=== PATIENT | female | born 1955 | race Hispanic/Latino ===

== ENCOUNTER 2018-11-05 16:46 | Inpatient (IN) | payer MEDICAID ==
[2018-11-05 16:46] VITALS: BMI 19.7
--- NOTE | 2018-11-05 17:17 | C.PDOC ---
History Of Present Illness 63 year old female with a history of stent x1 presents to the ED for evaluation of a left leg blood clot associated with left leg swelling for 5 days. The patient reports she was recently diagnosed with the blood clot by PMD Dr. Jorge contreras. She denies fever, chills, chest pain, shortness of breath, recent travel, and any other associated symptoms. Time Seen by Provider: 11/05/18 17:08 Chief Complaint (Nursing): Lower Extremity Problem/Injury History Per: Patient History/Exam Limitations: no limitations Onset/Duration Of Symptoms: Days Current Symptoms Are (Timing): Still Present Recent travel outside of the [place]: No Past Medical History Reviewed: Historical Data, Nursing Documentation, Vital Signs Vital Signs: Last Vital Signs Temp 97.4 F L 11/05/18 16:50 Pulse 76 11/05/18 16:50 Resp 18 11/05/18 16:50 BP 127/81 11/05/18 16:50 Pulse Ox 99 11/05/18 16:50 - Medical History PMH: Anxiety, Arthritis (GENERALIZED), HTN (NO LONGER ON MEDS), Hypercholesterolemia, Hypothyroidism, Seizures Denies: Chronic Kidney Disease Surgical History: Coronary Stent (5 YRS AGO - 1 STENT) - [employer] Procedures COLONOSCOPY (11/10/14) Family History: States: Unknown Family Hx - Social History Hx Alcohol Use: No Hx Substance Use: No - Immunization History Hx Tetanus Toxoid Vaccination: No Hx Influenza Vaccination: Yes Hx Pneumococcal Vaccination: Yes Review Of Systems Except As Marked, All Systems Reviewed And Found Negative. (all other systems negative except as noted in the HPI.) Musculoskeletal: Positive for: Leg Pain (right knee pain. ), Other (right knee swelling. ) Physical Exam - Physical Exam Additional Physical Exam Comments: Gen: VS reviewed, alert, well developed, well nourished, nontoxic, mild distress Eye: EOMI, PERRL Neck: no JVD, supple, no adenopathy CV: regular rate, regular rhythm, no rubs, no murmur, S1, S2 Pulm: no distress, clear to auscultation, no wheeze, no rhonchi, breath sounds equal, no rales Abd: soft, nontender, no guarding, no rebound, no rigidity Extremities: no edema, good dp pulses, questionable tenderness to the posterior left knee, (-) swelling to left knee. Skin: good color, no rash, no cyanosis Psych: responds appropriately to questions, normal affect Neuro: oriented x3, CN2-12 intact grossly, motor intact, sensation intact ED Course And Treatment - Laboratory Results Result Diagrams: 11/05/18 17:28 11/05/18 17:28 O2 Sat by Pulse Oximetry: 99 (RA) Pulse Ox Interpretation: Normal Medical Decision Making Medical Decision Making: Plan: -EKG Blood sent. 1829: nsr at 64 bpm, nml qrs, nml axis, no acute sttw abn 1924: call palced to dr. mercado and am awaiting a call back. has-bled score = 1 and i feel it is safe to start empiric anticoagulation. patient was sent to the hospital to be admitted for known outpt diagnosed left popliteal DVT. patient does not exhibit cardiopulmonary symptoms. patient stable for nonncritical bed admission. 2004: admit accepted by dr. mercado Disposition - Disposition Disposition: HOSPITALIZED Disposition Time: 20:04 Condition: STABLE Forms: [facility] (Yakut) - Clinical Impression Clinical Impression: DVT (deep venous thrombosis) - Scribe Statement The provider has reviewed the documentation as recorded by the Scribe (Joycelyn Verma) Provider Attestation: All medical record entries made by the Scribe were at my direction and personally dictated by me. I have reviewed the chart and agree that the record accurately reflects my personal performance of the history, physical exam, medical decision making, and the department course for this patient. I have also personally directed, reviewed, and agree with the discharge instructions and disposition.
[2018-11-05 17:36] LABS: BASO % 0.6 % (0.0-2.0); EOS % 0.9 % (0.0-4.0); HEMOGLOBIN 14.5 g/dL (11.0-16.0); LYMPH # 1.2 K/uL (1.0-4.3); MEAN CELL VOLUME 91.6 fL (81.0-99.0); MEAN CORPUSCULAR HEMOGLOBIN 30.3 pg (27.0-31.0); MEAN PLATELET VOLUME 7.5 fL (7.2-11.7); MONO # 0.3 K/uL (0.0-0.8); MONO % 8.6 % (0.0-10.0); NEUT # 2.2 K/uL (1.8-7.0); NEUT % 58.9 % (50.0-75.0); RBC 4.78 Mil/uL (3.80-5.20); RED CELL DISTRIBUTION WIDTH 13.8 % (11.5-14.5); WHITE BLOOD COUNT 3.7 K/uL (4.8-10.8)
[2018-11-05 17:44] LABS: INR 1.1; PROTHROMBIN TIME 11.9 SECONDS (9.7-12.2)
[2018-11-05 17:52] LABS: BLOOD UREA NITROGEN 20 mg/dL (7-17); CALCIUM 9.5 mg/dl (8.6-10.4); GFR NON-AFRICAN AMERICAN > 60
[2018-11-05] MEDS ORDERED: Heparin25000 units/250ml 1/2NS 25,000 UNITS/250 ML BAG IV PRN (19:17)
[2018-11-05 22:53] VITALS: RESP 20
[2018-11-06] MEDS: Heparin25000 units/250ml 1/2NS 25,000 UNITS/250 ML BAG IV PRN (07:12)
[2018-11-06] MEDS: Calcium-Vit D 500 mg-200 Units Tab UD PO SCH (09:46)
[2018-11-06] MEDS: Levothyroxine 50 MCG TAB PO SCH (09:46)
--- NOTE | 2018-11-06 23:04 | CP.PCM.CON ---
History of Present Illness - History of Present Illness History of Present Illness: 63 year old female with a history of CAD s/p stent, hypothyroid, admitted with left leg DVT. The patient notes to swelling of her left leg for 3-4 days. She saw her PMD who ordered LE venous dopplers which revealed left leg DVT and told to report to the ER. She is currently on a heparin drip and reports to feeling better. She denies trauma or immobility. She has no shortness of breath and chest pain. Past medical history: CAD s/p stent, hypothyroid Past surgical history: Hernia repair Family history: Denies hematologic and oncologic problems Social history: Denies tobacco, alcohol, and illicit drug use. Allergies: NKA Review of systems: All remaining review of systems including HEENT, cardiovascular, respiratory, gastrointestinal, genitourinary, musculoskeletal, dermatologic, neurologic, and psychiatric are negative unless mentioned in the HPI. Past Patient History - Past Medical History & Family History Past Medical History?: Yes - Past Social History Smoking Status: Never Smoked - CARDIAC Hx Cardiac Disorders: Yes Hx Hypercholesterolemia: Yes Hx Hypertension: Yes (NO LONGER ON MEDS) - PULMONARY Hx Respiratory Disorders: No - NEUROLOGICAL Hx Neurological Disorder: No Hx Seizures: Yes - HEENT Hx HEENT Problems: No - RENAL Hx Chronic Kidney Disease: No - ENDOCRINE/METABOLIC Hx Hypothyroidism: Yes - HEMATOLOGICAL/ONCOLOGICAL Hx Blood Disorders: No - INTEGUMENTARY Hx Dermatological Problems: No - MUSCULOSKELETAL/RHEUMATOLOGICAL Hx Arthritis: Yes (GENERALIZED) Hx Falls: No - GASTROINTESTINAL Hx Gastrointestinal Disorders: No (ANAL FISSURE REPAIR) - GENITOURINARY/GYNECOLOGICAL Hx Genitourinary Disorders: Yes (KIDNEY STONES SURGICALLY REMOVED) - PSYCHIATRIC Hx Anxiety: Yes Hx Substance Use: No - SURGICAL HISTORY Hx Surgeries: Yes Hx Coronary Stent: Yes (5 YRS AGO - 1 STENT) - ANESTHESIA Hx Anesthesia: Yes Hx Anesthesia Reactions: No Hx Malignant Hyperthermia: No Has any member of the family had a problem w/ anesthesia?: No Meds Allergies/Adverse Reactions: Allergies Allergy/AdvReac Type Severity Reaction Status Date / Time No Known Allergies Allergy Verified 11/08/14 11:37 - Medications Medications: Current Medications Calcium/Vitamin D (Oyster Shell Calcium/Vitamin D 500 Mg-200 Iu) 1 tab PO DAILY [facility] Last Admin: 11/06/18 09:46 Dose: 1 tab Gabapentin (Neurontin) 300 mg PO TID [facility] Last Admin: 11/06/18 17:13 Dose: 300 mg Heparin Sodium/Sodium Chloride (Heparin 20862 Units/250ml 1/2 Normal Saline) 25,000 units in 250 mls @ 8.029 mls/hr IV .Q24H PRN; Protocol PRN Reason: ADJUST RATE PER PROTOCOL Last Admin: 11/06/18 07:12 Dose: 15 units/kg/hr, 8.029 mls/hr Levothyroxine Sodium (Synthroid) 50 mcg PO DAILY [facility] Last Admin: 11/06/18 09:46 Dose: 50 mcg Lorazepam (Ativan) 0.5 mg PO HS [facility] Last Admin: 11/06/18 21:28 Dose: 0.5 mg Rosuvastatin Calcium (Crestor) 10 mg PO [facility] Last Admin: 11/06/18 21:27 Dose: 10 mg Topiramate (Topamax) 25 mg PO BID [facility] Last Admin: 11/06/18 17:13 Dose: 25 mg Zolpidem Tartrate (Ambien) 5 mg PO [facility] Last Admin: 11/06/18 21:27 Dose: 5 mg Physical Exam - Head Exam Head Exam: ATRAUMATIC - Eye Exam Eye Exam: Normal appearance - ENT Exam ENT Exam: Mucous Membranes Dry - Respiratory Exam Respiratory Exam: NORMAL BREATHING PATTERN - Cardiovascular Exam Cardiovascular Exam: +S1, +S2 - GI/Abdominal Exam GI & Abdominal Exam: Normal Bowel Sounds - Extremities Exam Extremities exam: Positive for: pedal edema - Neurological Exam Neurological exam: Oriented x3 - Psychiatric Exam Psychiatric exam: Normal Affect, Normal Mood - Skin Skin Exam: Warm Results - Vital Signs Recent Vital Signs: Last Vital Signs Temp 98.0 F 11/06/18 15:00 Pulse 65 11/06/18 15:00 Resp 20 11/06/18 15:00 BP 128/79 11/06/18 15:00 Pulse Ox 98 11/06/18 15:00 - Labs Result Diagrams: 11/05/18 17:28 11/05/18 17:28 Labs: Laboratory Results - last 24 hr 11/06/18 11/06/18 11/06/18 04:41 14:10 20:23 APTT > 400 H* D 58 H D 64 H D Assessment & Plan (1) DVT (deep venous thrombosis) Assessment and Plan: left leg DVT unprovoked therapeutic anticoagulation; on heparin drip Status: Acute (2) Coagulopathy Assessment and Plan: secondary to anticoagulation Thank you for this interesting consult. Status: Acute
--- NOTE | 2018-11-06 23:49 | CARD ---
APPROVED REPORT Date of service: 11/05/2018 EKG Measurement Heart [id number] <Conclusion> Normal sinus rhythm Normal ECG
[2018-11-07] MEDS: Heparin25000 units/250ml 1/2NS 25,000 UNITS/250 ML BAG IV PRN ×2 (07:48→09:44)
[2018-11-07] MEDS: Levothyroxine 50 MCG TAB PO SCH (09:48)
[2018-11-07] MEDS: Calcium-Vit D 500 mg-200 Units Tab UD PO SCH (10:03)
[2018-11-07 10:15] LABS: INR 1.1; PROTHROMBIN TIME 12.1 SECONDS (9.7-12.2)
--- NOTE | 2018-11-07 21:11 | PN ---
DATE: 11/07/2018 SUBJECTIVE: The patient is very alert and awake and still complaining of some pain to the left hip and knee. Denies shortness of breath. No chest pain. No palpitations. PHYSICAL EXAMINATION: VITAL SIGNS: Blood pressure 113/74, pulse 60, respirations 20, temperature 97.4. NECK: Supple. LUNGS: Clear. HEART: Regular rate and rhythm. ABDOMEN: Soft. Nontender. No palpable mass. EXTREMITIES: There is mild tenderness in the left knee, internal aspect of the femoral canal lower portion. NEUROLOGIC: The patient is alert and awake. No motor or sensory deficit. LABORATORY DATA: The patient had blood test done. The PT is 12.1, INR 1.1, and PTT is 118. PLAN: The patient is on Coumadin and has a consult with Dr. Bob. We are going to continue the heparin and later on, we will consider Xarelto. Issa Gutierrez MD
--- NOTE | 2018-11-07 21:28 | CP.PCM.PN ---
Subjective - Date & Time of Evaluation Date of Evaluation: 11/07/18 Time of Evaluation: 19:00 - Subjective Subjective: Has left leg pain. Objective - Vital Signs/Intake and Output Vital Signs (last 24 hours): Temp Pulse Resp BP Pulse Ox 98.2 F 59 L 20 128/73 95 11/07/18 16:00 11/07/18 16:00 11/07/18 16:00 11/07/18 16:00 11/07/18 16:00 Intake and Output: 11/07/18 11/08/18 18:59 06:59 Intake Total 620 Balance 620 - Medications Medications: Current Medications Calcium/Vitamin D (Oyster Shell Calcium/Vitamin D 500 Mg-200 Iu) 1 tab PO DAILY [facility] Last Admin: 11/07/18 10:03 Dose: 1 tab Gabapentin (Neurontin) 300 mg PO TID [facility] Last Admin: 11/07/18 17:45 Dose: 300 mg Heparin Sodium/Sodium Chloride (Heparin 69568 Units/250ml 1/2 Normal Saline) 25,000 units in 250 mls @ 6.423 mls/hr IV .Q24H PRN; Protocol PRN Reason: ADJUST RATE PER PROTOCOL Last Admin: 11/07/18 09:44 Dose: 12 units/kg/hr, 6.423 mls/hr Levothyroxine Sodium (Synthroid) 50 mcg PO DAILY [facility] Last Admin: 11/07/18 09:48 Dose: 50 mcg Lorazepam (Ativan) 0.5 mg PO HS [facility] Last Admin: 11/06/18 21:28 Dose: 0.5 mg Rosuvastatin Calcium (Crestor) 10 mg PO HS [facility] Last Admin: 11/06/18 21:27 Dose: 10 mg Topiramate (Topamax) 25 mg PO BID [facility] Last Admin: 11/07/18 09:48 Dose: 25 mg Zolpidem Tartrate (Ambien) 5 mg PO HS [facility] Last Admin: 11/06/18 21:27 Dose: 5 mg - Labs Labs: 11/05/18 17:28 11/05/18 17:28 PT 12.1 SECONDS (9.7-12.2) 11/07/18 07:52 INR 1.1 11/07/18 07:52 APTT 81 SECONDS (21-34) H D 11/07/18 16:32 - Head Exam Head Exam: ATRAUMATIC - Eye Exam Eye Exam: Normal appearance - ENT Exam ENT Exam: Mucous Membranes Dry - Respiratory Exam Respiratory Exam: NORMAL BREATHING PATTERN - Cardiovascular Exam Cardiovascular Exam: +S1, +S2 - GI/Abdominal Exam GI & Abdominal Exam: Normal Bowel Sounds Assessment and Plan (1) DVT (deep venous thrombosis) Assessment & Plan: left leg DVT unprovoked therapeutic anticoagulation; on heparin drip Status: Acute (2) Coagulopathy Assessment & Plan: secondary to anticoagulation Status: Acute
[2018-11-08 08:28] LABS: BASO % 0.6 % (0.0-2.0); EOS # 0.1 K/uL (0.0-0.7); EOS % 2.4 % (0.0-4.0); HEMOGLOBIN 14.2 g/dL (11.0-16.0); LYMPH % 33.3 % (20.0-40.0); MEAN CELL VOLUME 92.8 fL (81.0-99.0); MEAN CORPUSCULAR HEMOGLOBIN 31.1 pg (27.0-31.0); MEAN CORPUSCULAR HGB CONC 33.5 g/dL (33.0-37.0); MONO # 0.4 K/uL (0.0-0.8); MONO % 12.2 % (0.0-10.0); NEUT # 1.5 K/uL (1.8-7.0); NEUT % 51.5 % (50.0-75.0); NRBC % 0.2 % (0.0-2.0); RBC 4.57 Mil/uL (3.80-5.20)
[2018-11-08 08:51] LABS: ALBUMIN 4.5 g/dL (3.5-5.0); BLOOD UREA NITROGEN 16 mg/dL (7-17); CALCIUM 9.3 mg/dl (8.6-10.4); GFR NON-AFRICAN AMERICAN > 60
[2018-11-08 08:52] LABS: ALB/GLOB RATIO 1.4 (1.0-2.1); ALT/SGPT 14 U/L (9-52); AST/SGOT 40 U/L (14-36)
--- NOTE | 2018-11-08 10:13 | HP ---
HISTORY OF PRESENT ILLNESS: This patient is a 63-year-old female with history of depression, seizure disorder, and hypothyroidism. The patient came to my office, was complaining of some swelling of the left thigh which was then turned to the left knee. The patient was evaluated by me at the office and a stat venous Doppler was ordered. The venous Doppler has revealed that the patient has DVT of the popliteal vein. The patient was called and requested to go immediately to the emergency room for admission which the patient has done at the present time. PAST MEDICAL HISTORY: As I mentioned, history of depression, history of hypothyroidism, seizure disorder, and vitamin D deficiency. MEDICATIONS AT HOME: The patient was on calcium and vitamin D supplement, topiramate, Synthroid, lorazepam, gabapentin, atorvastatin, and aspirin. ALLERGIES: THE PATIENT HAS NO KNOWN ALLERGY. SOCIAL HISTORY: No history of smoking or alcohol abuse at this time. No history of illicit drug. FAMILY HISTORY: No inherited disease. REVIEW OF SYSTEMS: RESPIRATORY SYSTEM: The patient denies any shortness of breath. CARDIOVASCULAR SYSTEM: No chest pain or palpitation. GASTROINTESTINAL: No nausea or vomiting except the patient has some anorexia, apparently voluntary. GENITOURINARY: No dysuria. . NEUROLOGIC: The patient is complaining of some knee pain. PHYSICAL EXAMINATION: GENERAL: The patient is alert, awake, and oriented x3 and pleasant. VITAL SIGNS: Blood pressure on admission was 119/64, pulse 68, respirations 20, temperature 98.7. HEENT: Normocephalic and atraumatic. NECK: Supple. No JVD. LUNGS: Clear. HEART: Regular rate and rhythm. ABDOMEN: Soft and nontender. No palpable mass. Positive bowel sounds. EXTREMITIES: There is slight swelling of the left thigh and tenderness to the anterior aspect of the left knee and area of the femoral canal. LABORATORY DATA: The patient had some tests done, WBC was 3.7, hemoglobin 14.5, hematocrit 43.8, and platelet was 218. Chemistry showed a sodium of 130, potassium 3.6, chloride 109, bicarb is 19, BUN is 20, creatinine 0.7, and GFR is more than 60. Coagulation: PT 11.9, INR 1.1, and PTT 33. IMPRESSION: The patient will be admitted with the diagnosis of deep venous thrombosis of the left popliteal, depression, hypothyroidism, and vitamin D deficiency. The patient will have a consult with Dr. Bob, the compensation advisor. The case was reviewed and discussed with Jasmin Rivas, the nurse practitioner, today. Issa Gutierrez MD
[2018-11-08] MEDS: Levothyroxine 50 MCG TAB PO SCH (10:23)
[2018-11-08] MEDS: Calcium-Vit D 500 mg-200 Units Tab UD PO SCH (10:23)
[2018-11-08 19:54] LABS: INR 1.1; PROTHROMBIN TIME 12.5 SECONDS (9.7-12.2)
--- NOTE | 2018-11-08 21:48 | PN ---
DATE: 11/08/2018 SUBJECTIVE: Today, the patient is alert and awake, but still complaining of some pain to the left side of the knee and left thigh. No shortness of breath. PHYSICAL EXAMINATION: VITAL SIGNS: Blood pressure 120/73, pulse 69, respirations 20, and temperature 98.2. NECK: Supple. LUNGS: Clear. HEART: Regular rate and rhythm. ABDOMEN: Soft. EXTREMITIES: There is some tenderness in the internal aspect of the left thigh portion and left popliteal area, and there is edema of the thigh. LABORATORY DATA: WBC 3, hemoglobin 14, hematocrit 42.4, and platelet is 167. Chemistry showed sodium 140, potassium 4.7, chloride 108, bicarb 21, BUN 16, and creatinine 0.8. AST 40, ALT 40, and alkaline phosphatase 77. The PT is 13 and 66. ASSESSMENT AND PLAN: Plan is that we are going to put the patient on Coumadin now at a dose of 5 mg, PT and INR . Issa Gutierrez MD
[2018-11-09] MEDS: Heparin25000 units/250ml 1/2NS 25,000 UNITS/250 ML BAG IV PRN (03:50)
[2018-11-09] MEDS: Levothyroxine 50 MCG TAB PO SCH (05:34)
[2018-11-09 07:54] LABS: BASO % 0.8 % (0.0-2.0); EOS # 0.1 K/uL (0.0-0.7); EOS % 2.5 % (0.0-4.0); HEMOGLOBIN 14.8 g/dL (11.0-16.0); LYMPH % 34.7 % (20.0-40.0); MEAN CELL VOLUME 92.9 fL (81.0-99.0); MEAN CORPUSCULAR HGB CONC 33.4 g/dL (33.0-37.0); MEAN PLATELET VOLUME 7.6 fL (7.2-11.7); MONO # 0.3 K/uL (0.0-0.8); MONO % 11.9 % (0.0-10.0); NEUT # 1.4 K/uL (1.8-7.0); NEUT % 50.1 % (50.0-75.0); NRBC % 0.1 % (0.0-2.0); RBC 4.75 Mil/uL (3.80-5.20); RED CELL DISTRIBUTION WIDTH 13.7 % (11.5-14.5); WHITE BLOOD COUNT 2.9 K/uL (4.8-10.8)
[2018-11-09 08:00] LABS: INR 1.1; PROTHROMBIN TIME 12.2 SECONDS (9.7-12.2)
[2018-11-09 08:19] LABS: ALB/GLOB RATIO 1.3 (1.0-2.1); ALBUMIN 4.3 g/dL (3.5-5.0); ALT/SGPT 23 U/L (9-52); AST/SGOT 29 U/L (14-36); BLOOD UREA NITROGEN 14 mg/dL (7-17); CALCIUM 8.8 mg/dl (8.6-10.4); GFR NON-AFRICAN AMERICAN > 60
[2018-11-09] MEDS: Calcium-Vit D 500 mg-200 Units Tab UD PO SCH (10:56)
--- NOTE | 2018-11-10 01:49 | PN ---
DATE: 11/09/2018 SUBJECTIVE: Today, the patient is alert and awake, just complaining of some pain to the left leg, to the left lower extremity. Denies any chest pain or palpitation. No dizziness. PHYSICAL EXAMINATION: VITAL SIGNS: The patient has blood pressure of 103/61, pulse 64, respirations 20, temperature 98.1. NECK: Supple. No JVD. LUNGS: Clear. HEART: Regular rate and rhythm. ABDOMEN: Soft, nontender. No palpable mass. EXTREMITIES: There is a mild tenderness to the left knee and internal aspect of the left thigh. LABORATORY DATA: The patient's blood work has shown WBC 2.9, hemoglobin 14.8, hematocrit 44.2, and platelet is 184. Chemistry showed sodium 137, potassium 4.4, chloride 103, bicarb 22, BUN 14, creatinine 0.9, and glucose 85. Calcium 8.8, phosphorus 4.2. Also the patient has PTT 82 with PT 12.2, INR is 1.1. PLAN: The plan is that we are going to continue IV heparin, and also Coumadin will be ordered at 5 mg again today. The case was reviewed and discussed with Jasmin Rivas, the nurse practitioner. Issa Gutierrez MD
[2018-11-10] MEDS: Levothyroxine 50 MCG TAB PO SCH (06:41)
[2018-11-10 07:38] LABS: HEMOGLOBIN 13.8 g/dL (11.0-16.0); MEAN CELL VOLUME 92.4 fL (81.0-99.0); MEAN CORPUSCULAR HEMOGLOBIN 30.5 pg (27.0-31.0); MEAN PLATELET VOLUME 7.8 fL (7.2-11.7); RBC 4.53 Mil/uL (3.80-5.20); RED CELL DISTRIBUTION WIDTH 13.7 % (11.5-14.5); WHITE BLOOD COUNT 3.2 K/uL (4.8-10.8)
[2018-11-10 07:48] LABS: INR 1.2; PROTHROMBIN TIME 13.2 SECONDS (9.7-12.2)
[2018-11-10] MEDS: Calcium-Vit D 500 mg-200 Units Tab UD PO SCH (11:24)
[2018-11-10] MEDS: Heparin25000 units/250ml 1/2NS 25,000 UNITS/250 ML BAG IV PRN (22:42)
--- NOTE | 2018-11-11 01:22 | PN ---
DATE: 11/10/2018 SUBJECTIVE: Today, the patient is alert and awake. Denies any shortness of breath. No chest pain or palpitation. Good appetite. The patient has less tenderness in the left thigh and knee. PHYSICAL EXAMINATION: VITAL SIGNS: The patient has blood pressure of 103/59, pulse 72, respirations 20, and temperature 98.6. NECK: Supple. No JVD. LUNGS: Clear. HEART: Regular rate and rhythm. ABDOMEN: Soft, nontender. No palpable mass. EXTREMITIES: There is less tenderness to the internal aspect of the left thigh. LABORATORY DATA: The patient has blood workup done. WBC 3.2, hemoglobin 13.8, hematocrit 41.9, and platelets 182. Chemistry showed sodium 137, potassium 4.4, chloride 103, bicarb 22, BUN 14, creatinine 0.9, and GFR is more than 60. PT is 13.2, INR 1.2, and PTT is . PLAN: The plan is that we are going to increase the Coumadin to 7.5 and continue the heparin drip and then for ambulation. So, the case was reviewed and discussed with Jasmin Rivas, the nurse practitioner. Issa Gutierrez MD
[2018-11-11] MEDS: Levothyroxine 50 MCG TAB PO SCH (05:59)
[2018-11-11 07:15] LABS: MEAN CELL VOLUME 92.6 fL (81.0-99.0); MEAN CORPUSCULAR HEMOGLOBIN 31.2 pg (27.0-31.0); MEAN CORPUSCULAR HGB CONC 33.7 g/dL (33.0-37.0); MEAN PLATELET VOLUME 7.9 fL (7.2-11.7); RBC 4.16 Mil/uL (3.80-5.20); RED CELL DISTRIBUTION WIDTH 14.1 % (11.5-14.5); WHITE BLOOD COUNT 2.9 K/uL (4.8-10.8)
[2018-11-11 07:34] LABS: INR 1.7
--- NOTE | 2018-11-11 11:24 | CP.PCM.PN ---
Subjective - Date & Time of Evaluation Date of Evaluation: 11/08/18 Time of Evaluation: 12:00 - Subjective Subjective: Has some left calf pain. Objective - Vital Signs/Intake and Output Vital Signs (last 24 hours): Temp Pulse Resp BP Pulse Ox 97.6 F 65 20 110/72 99 11/11/18 08:00 11/11/18 08:00 11/11/18 08:00 11/11/18 08:00 11/11/18 08:00 Intake and Output: 11/11/18 11/11/18 06:59 18:59 Intake Total 251.2 Balance 251.2 - Medications Medications: Current Medications Calcium/Vitamin D (Oyster Shell Calcium/Vitamin D 500 Mg-200 Iu) 1 tab PO DAILY [facility] Last Admin: 11/10/18 11:24 Dose: 1 tab Gabapentin (Neurontin) 300 mg PO TID [facility] Last Admin: 11/10/18 17:13 Dose: 300 mg Heparin Sodium/Sodium Chloride (Heparin 73015 Units/250ml 1/2 Normal Saline) 25,000 units in 250 mls @ 6.423 mls/hr IV .Q24H PRN; Protocol PRN Reason: ADJUST RATE PER PROTOCOL Last Admin: 11/10/18 22:42 Dose: 12 units/kg/hr, 6.423 mls/hr Levothyroxine Sodium (Synthroid) 50 mcg PO DAILY@0630 [facility] Last Admin: 11/11/18 05:59 Dose: 50 mcg Lorazepam (Ativan) 0.5 mg PO [facility] Last Admin: 11/10/18 21:24 Dose: 0.5 mg Rosuvastatin Calcium (Crestor) 10 mg PO [facility] Last Admin: 11/10/18 21:23 Dose: 10 mg Topiramate (Topamax) 25 mg PO BID [facility] Last Admin: 11/10/18 17:11 Dose: 25 mg Zolpidem Tartrate (Ambien) 5 mg PO [facility] Last Admin: 11/10/18 21:23 Dose: 5 mg - Labs Labs: 11/11/18 06:57 11/09/18 07:46 PT 19.0 SECONDS (9.7-12.2) H D 11/11/18 06:57 INR 1.7 D 11/11/18 06:57 APTT 80 SECONDS (21-34) H 11/11/18 06:57 - Head Exam Head Exam: ATRAUMATIC - Eye Exam Eye Exam: Normal appearance - ENT Exam ENT Exam: Mucous Membranes Dry - Respiratory Exam Respiratory Exam: NORMAL BREATHING PATTERN - Cardiovascular Exam Cardiovascular Exam: +S1, +S2 - GI/Abdominal Exam GI & Abdominal Exam: Normal Bowel Sounds - Extremities Exam Extremities Exam: Pedal Edema Assessment and Plan (1) DVT (deep venous thrombosis) Assessment & Plan: left leg DVT unprovoked therapeutic anticoagulation; on heparin drip and coumadin Status: Acute (2) Coagulopathy Assessment & Plan: anticoagulation Status: Acute
--- NOTE | 2018-11-11 11:25 | CP.PCM.PN ---
Subjective - Date & Time of Evaluation Date of Evaluation: 11/09/18 Time of Evaluation: 19:00 - Subjective Subjective: Has left leg pain. Objective - Vital Signs/Intake and Output Vital Signs (last 24 hours): Temp Pulse Resp BP Pulse Ox 97.6 F 65 20 110/72 99 11/11/18 08:00 11/11/18 08:00 11/11/18 08:00 11/11/18 08:00 11/11/18 08:00 Intake and Output: 11/11/18 11/11/18 06:59 18:59 Intake Total 251.2 Balance 251.2 - Medications Medications: Current Medications Calcium/Vitamin D (Oyster Shell Calcium/Vitamin D 500 Mg-200 Iu) 1 tab PO DAILY [facility] Last Admin: 11/10/18 11:24 Dose: 1 tab Gabapentin (Neurontin) 300 mg PO TID [facility] Last Admin: 11/10/18 17:13 Dose: 300 mg Heparin Sodium/Sodium Chloride (Heparin 58662 Units/250ml 1/2 Normal Saline) 25,000 units in 250 mls @ 6.423 mls/hr IV .Q24H PRN; Protocol PRN Reason: ADJUST RATE PER PROTOCOL Last Admin: 11/10/18 22:42 Dose: 12 units/kg/hr, 6.423 mls/hr Levothyroxine Sodium (Synthroid) 50 mcg PO DAILY@0630 [facility] Last Admin: 11/11/18 05:59 Dose: 50 mcg Lorazepam (Ativan) 0.5 mg PO [facility] Last Admin: 11/10/18 21:24 Dose: 0.5 mg Rosuvastatin Calcium (Crestor) 10 mg PO [facility] Last Admin: 11/10/18 21:23 Dose: 10 mg Topiramate (Topamax) 25 mg PO BID [facility] Last Admin: 11/10/18 17:11 Dose: 25 mg Zolpidem Tartrate (Ambien) 5 mg PO [facility] Last Admin: 11/10/18 21:23 Dose: 5 mg - Labs Labs: 11/11/18 06:57 11/09/18 07:46 PT 19.0 SECONDS (9.7-12.2) H D 11/11/18 06:57 INR 1.7 D 11/11/18 06:57 APTT 80 SECONDS (21-34) H 11/11/18 06:57 - Head Exam Head Exam: ATRAUMATIC - Eye Exam Eye Exam: Normal appearance - ENT Exam ENT Exam: Mucous Membranes Dry - Respiratory Exam Respiratory Exam: NORMAL BREATHING PATTERN - Cardiovascular Exam Cardiovascular Exam: +S1, +S2 - GI/Abdominal Exam GI & Abdominal Exam: Normal Bowel Sounds Assessment and Plan (1) DVT (deep venous thrombosis) Assessment & Plan: left leg DVT unprovoked therapeutic anticoagulation; on heparin drip and coumadin Status: Acute (2) Coagulopathy Assessment & Plan: secondary to anticoagulation Status: Acute
--- NOTE | 2018-11-11 11:29 | CP.PCM.PN ---
Subjective - Date & Time of Evaluation Date of Evaluation: 11/11/18 Time of Evaluation: 11:00 - Subjective Subjective: Has left calf pain. Objective - Vital Signs/Intake and Output Vital Signs (last 24 hours): Temp Pulse Resp BP Pulse Ox 97.6 F 65 20 110/72 99 11/11/18 08:00 11/11/18 08:00 11/11/18 08:00 11/11/18 08:00 11/11/18 08:00 Intake and Output: 11/11/18 11/11/18 06:59 18:59 Intake Total 251.2 Balance 251.2 - Medications Medications: Current Medications Calcium/Vitamin D (Oyster Shell Calcium/Vitamin D 500 Mg-200 Iu) 1 tab PO DAILY [facility] Last Admin: 11/10/18 11:24 Dose: 1 tab Gabapentin (Neurontin) 300 mg PO TID [facility] Last Admin: 11/10/18 17:13 Dose: 300 mg Heparin Sodium/Sodium Chloride (Heparin 03225 Units/250ml 1/2 Normal Saline) 25,000 units in 250 mls @ 6.423 mls/hr IV .Q24H PRN; Protocol PRN Reason: ADJUST RATE PER PROTOCOL Last Admin: 11/10/18 22:42 Dose: 12 units/kg/hr, 6.423 mls/hr Levothyroxine Sodium (Synthroid) 50 mcg PO DAILY@0630 [facility] Last Admin: 11/11/18 05:59 Dose: 50 mcg Lorazepam (Ativan) 0.5 mg PO [facility] Last Admin: 11/10/18 21:24 Dose: 0.5 mg Rosuvastatin Calcium (Crestor) 10 mg PO [facility] Last Admin: 11/10/18 21:23 Dose: 10 mg Topiramate (Topamax) 25 mg PO BID [facility] Last Admin: 11/10/18 17:11 Dose: 25 mg Zolpidem Tartrate (Ambien) 5 mg PO [facility] Last Admin: 11/10/18 21:23 Dose: 5 mg - Labs Labs: 11/11/18 06:57 11/09/18 07:46 PT 19.0 SECONDS (9.7-12.2) H D 11/11/18 06:57 INR 1.7 D 11/11/18 06:57 APTT 80 SECONDS (21-34) H 11/11/18 06:57 - Head Exam Head Exam: ATRAUMATIC - Eye Exam Eye Exam: Normal appearance - ENT Exam ENT Exam: Mucous Membranes Dry - Respiratory Exam Respiratory Exam: NORMAL BREATHING PATTERN - Cardiovascular Exam Cardiovascular Exam: +S1, +S2 - GI/Abdominal Exam GI & Abdominal Exam: Normal Bowel Sounds Assessment and Plan (1) DVT (deep venous thrombosis) Assessment & Plan: unprovoked on therapeutic anticoagulation with heparin and coumadin goal INR 2-3 Status: Acute (2) Coagulopathy Assessment & Plan: anticoagulation Status: Acute
[2018-11-11] MEDS: Calcium-Vit D 500 mg-200 Units Tab UD PO SCH (11:47)
[2018-11-11] MEDS: Heparin25000 units/250ml 1/2NS 25,000 UNITS/250 ML BAG IV PRN (22:18)
--- NOTE | 2018-11-12 01:53 | PN ---
DATE: 11/11/2018 SUBJECTIVE: Today, the patient is alert and awake, did not have any shortness of breath. No chest pain or palpitation. No dizziness. The patient has pain in the left thigh, but improving. PHYSICAL EXAMINATION: VITAL SIGNS: The patient has a blood pressure of 116/71, pulse 65, respirations 20, temperature 98.2. NECK: Supple. No JVD. LUNGS: Clear. HEART: Regular rate and rhythm. ABDOMEN: Soft and nontender. No palpable mass. EXTREMITIES: There is mild tenderness in the left calf and also to the left internal aspect of the left thigh. LABORATORY DATA: The patient's blood work showed that WBC 2.9, hemoglobin 13, hematocrit 38, and platelet 180. Coag showed that the PT is ____, PTT 80. Chemistry: Sodium was 137 on 11/09/2018. PLAN: The plan is that we are going to continue to give this patient the Coumadin, the dose will be 7.5 mg and continue the heparin. The case was reviewed and discussed with Jasmin Rivas, the nurse practitioner. Issa Gutierrez MD
[2018-11-12] MEDS: Levothyroxine 50 MCG TAB PO SCH (05:40)
[2018-11-12 06:56] LABS: INR 2.3; PROTHROMBIN TIME 25.6 SECONDS (9.7-12.2)
[2018-11-12 08:12] VITALS: BP 100/67; PULSE 63; TEMP 98; O2SAT 98
[2018-11-12] MEDS ORDERED: Heparin25000 units/250ml 1/2NS 25,000 UNITS/250 ML BAG IV PRN (09:15)
[2018-11-12] MEDS: Calcium-Vit D 500 mg-200 Units Tab UD PO SCH (09:28)
--- NOTE | 2018-11-12 23:50 | PN ---
DATE: 11/12/2018 SUBJECTIVE: The patient was seen early this morning and does not have any shortness of breath. No shortness of breath or palpitations, and mild decrease of pain to left lower extremity. PHYSICAL EXAMINATION: VITAL SIGNS: The patient has a blood pressure of 100/67, pulse 63, respirations 20, temperature 98 degrees. NECK: Supple. No JVD. LUNGS: Clear. HEART: Regular rate and rhythm ABDOMEN: Soft. EXTREMITIES: There is a decrease above the left lower extremity, and no tenderness noted to the calf or the thigh. LABORATORY DATA: The lab report show that PT 25.6, INR 2.3. The plan is that we going to discharge the patient on Coumadin, and the case was discussed with Jasmin Rivas, the Nurse Practitioner. Issa Gutierrez MD
--- NOTE | 2018-11-12 23:52 | CP.PCM.PN ---
Subjective - Date & Time of Evaluation Date of Evaluation: 11/12/18 Time of Evaluation: 13:00 - Subjective Subjective: Less leg pain. Objective - Vital Signs/Intake and Output Vital Signs (last 24 hours): Temp Pulse Resp BP Pulse Ox 98 F 63 20 100/67 98 11/12/18 08:00 11/12/18 08:00 11/12/18 08:00 11/12/18 08:00 11/12/18 08:00 Intake and Output: 11/12/18 11/13/18 18:59 06:59 Intake Total 240 Balance 240 - Labs Labs: 11/11/18 06:57 11/09/18 07:46 PT 25.6 SECONDS (9.7-12.2) H D 11/12/18 06:34 INR 2.3 D 11/12/18 06:34 APTT 123 SECONDS (21-34) H* D 11/12/18 06:34 - Head Exam Head Exam: ATRAUMATIC - Eye Exam Eye Exam: Normal appearance - ENT Exam ENT Exam: Mucous Membranes Dry - Respiratory Exam Respiratory Exam: NORMAL BREATHING PATTERN - Cardiovascular Exam Cardiovascular Exam: +S1, +S2 - GI/Abdominal Exam GI & Abdominal Exam: Normal Bowel Sounds Assessment and Plan (1) DVT (deep venous thrombosis) Assessment & Plan: unprovoked therapeutic anticoagulation on coumadin; goal INR 2-3 Status: Acute (2) Coagulopathy Assessment & Plan: anticoagulation Status: Acute
--- NOTE | 2018-11-13 06:28 | DS ---
The patient is a 63-year-old female with a history of seizure disorder, hyperlipidemia, and also history of depression. The patient came to my office. He was complaining of some swelling of the left lower extremity and left thigh and some tenderness. The patient was evaluated and was sent for a venous Doppler that was found to be positive for DVT. The patient was sent to the emergency room for further workup, and the patient was admitted. The patient had a consult with Dr. Bob, non destructive evaluation specialist/oncologist. The patient was put on a heparin drip along with the current medications. Today, Coumadin was also given, and today the INR is 2.3. The patient is somewhat asymptomatic. So, the plan is that we are going to discharge the patient home. We are going to monitor the PT/INR within three days. The case was reviewed and discussed with Jasmin Rivas, the nurse practitioner. Issa Gutierrez MD
== END 2018-11-12 14:02 | disposition home or self-care (01) | DRG 131 ==
LOC: C.ER 16:46 → C.3T 20:05
PROVIDERS: ADMIT Specialist; ATTEND Specialist
DX: I82.432 Acute embolism and thrombosis of left popliteal vein (principal); D68.9 Coagulation defect, unspecified; I25.10 Atherosclerotic heart disease of native coronary artery without angina pectoris; I10 Essential (primary) hypertension; E03.9 Hypothyroidism, unspecified; G40.909 Epilepsy, unspecified, not intractable, without status epilepticus; E55.9 Vitamin D deficiency, unspecified; F32.9 Major depressive disorder, single episode, unspecified; E78.5 Hyperlipidemia, unspecified; E78.00 Pure hypercholesterolemia, unspecified; Z95.5 Presence of coronary angioplasty implant and graft; Z87.442 Personal history of urinary calculi

== ENCOUNTER 2019-02-16 09:49 | Outpatient (CLI) | payer MEDICAID | END 2019-02-16 09:50 | disposition home or self-care (01) | LOC: C.VASC 09:49 | DX: I82.409 Acute embolism and thrombosis of unspecified deep veins of unspecified lower extremity (principal); Z12.31 Encounter for screening mammogram for malignant neoplasm of breast ==

== ENCOUNTER 2019-02-26 09:49 | Outpatient (CLI) | payer MEDICAID | END 2019-02-26 09:50 | disposition home or self-care (01) | LOC: C.USIC 09:49 | DX: I65.29 Occlusion and stenosis of unspecified carotid artery (principal) ==